=== PATIENT | female | born 1960 | race Caucasian/White ===

== ENCOUNTER 2022-01-17 12:39 | Outpatient (CLI) | payer BC | END 2022-01-17 12:40 | disposition home or self-care (01) | LOC: BICMAMMO 12:39 | PROVIDERS: ATTEND Family Medicine | DX: Z12.31 Encounter for screening mammogram for malignant neoplasm of breast (principal) | CPT/HCPCS: 77063; 77067 ==

== ENCOUNTER 2024-08-11 16:18 | Outpatient (CLI) | payer BC | END 2024-08-11 16:19 | disposition home or self-care (01) | LOC: BICRAD 16:18 | PROVIDERS: ATTEND Family Medicine | DX: M79.2 Neuralgia and neuritis, unspecified (principal); M47.814 Spondylosis without myelopathy or radiculopathy, thoracic region | CPT/HCPCS: 72072 ==